=== PATIENT | female | born 1950 | race Caucasian/White ===

== ENCOUNTER → 2022-07-27 | Outpatient (CLI) | payer MEDICARE, OTHER ==
[~2022-07-27] MED LIST: ANUSOL HC CREAM30 GM TP; ATARAX 25MG25 MG/TAB PO; BACTRIM DS 8001 TAB PO; CIPRO 500MG TA500 MG PO; CLEOCIN HC150 MG/CAP PO; COZAAR 50MG50 MG/TAB PO; CRESTOR5 MG PO; DIFLUCAN 100MG100 MG PO; DOXYCYCLINE HY100 MG PO; FERROUSAL325 MG PO; HYZAAR 50-12.1 UDTAB PO; IMODIUM 2MG CAPS2 MG PO; JUVEN PO; KENALOG DENTAL P5 GM DT; LAC-HYDRIN LOT 225GM TP; LASIX 20MG TABL20 MG PO; LYRICA 50MG CAP50 MG PO; MIRALAX PA17 GM/Dose PO; MUCINEX1200 MG PO; NORVASC2.5 MG PO; NYSTATIN OR100 MU/ML PO; PHARMASSURE ZIN50 MG PO; PRENATAL TABLET PO; PROAIR HFA0.09 MG/AC IH; PROBIOTIC ACID1 EAC3 PO; ROXICODONE 55 MG/TAB PO; SALINE 45 ML45 ML NS; SYNTHROID 0.10.15 MG PO; TYLENOL 325MG325 MG PO; VANCOCIN H125 MG/CAP PO; VITAMIN C500 MG PO; VOLTAREN GEL 1%1 TU TP; ZANAFLEX2 MG PO; ZOFRAN 4MG T4 MG/TAB PO; [UNRECOGNIZED DRUG - OTHER] TP
== END ==
LOC: MC.RAD 12:58
DX: R92.8 Other abnormal and inconclusive findings on diagnostic imaging of breast (principal)